=== PATIENT | male | born 1970 | race African-American/Black ===

== ENCOUNTER 2020-12-14 22:10 | Inpatient (IN) | payer MEDICAID ==
[~2020-12-14] VITALS: Ht 177.8 cm; Wt 116.6 kg
[2020-12-15] MEDS ORDERED: SODIUM CHLORIDE 0.9% 1,000 ML IV ONE (00:30)
[2020-12-15] MEDS ORDERED: CEFTRIAXONE 1 G PREMIX 50 ML IV ONE (00:30)
[2020-12-15] MEDS ORDERED: CLINDAMYCIN 600 MG in DEXTROSE 5% WATER 50 ML IV ONE (00:30)
[2020-12-15] MEDS ORDERED: CLINDAMYCIN 600MG PREMIX 50 ML IV NR (00:45)
[2020-12-15 01:41] LABS: BASOPHILS % 0.5 % (0.0-2.0); EOSINOPHILS % 1.3 % (0.0-5.0); HEMATOCRIT. 37.1 % (42.0-52.0); HEMOGLOBIN. 12.8 g/dL (14.0-18.0); LYMPHOCYTES % 25.8 % (20.0-50.0); MEAN CORPUSCULAR HEMOGLOBIN 27.4 pg (28.0-32.0); MEAN CORPUSCULAR VOLUME 79.1 fL (80.0-94.0); MEAN PLATELET VOLUME 8.7 fl (7.4-10.4); MONOCYTES % 7.8 % (2.0-8.0); NEUTROPHILS % 64.6 % (40.0-76.0); PLATELET 230 x1000/uL (130-400); RED BLOOD CELL COUNT 4.69 mill/uL (4.7-6.1); RED CELL DISTRIBUTION WIDTH 14.4 % (11.6-14.6)
[2020-12-15 01:46] LABS: CHLORIDE 100 mEq/L (98-107)
[2020-12-15 01:57] LABS: BETA HYDROXYBUTYRATE 0.4 mMol/L (0.0-0.3)
[2020-12-15] MEDS ORDERED: MAGNESIUM/ALUMINUM HYDROXIDE/SIMETHICONE 30ML UDC PO PRN (06:30)
[2020-12-15] MEDS ORDERED: ACETAMINOPHEN 325MG TABLET PO PRN (06:30)
[2020-12-15] MEDS ORDERED: ONDANSETRON HCL 4MG/2ML INJ IV PRN (06:30)
[2020-12-15] MEDS ORDERED: PIPERACILLIN/TAZOBACTAM 3.375 G in DEXTROSE 5% WATER 50 ML IV SCH (06:30)
[2020-12-15] MEDS ORDERED: HYDROCODONE/ACETAMINOPHEN 5/325MG TABLET PO PRN (06:30)
[2020-12-15] MEDS ORDERED: ENOXAPARIN 40MG/0.4ML SYR SUBCUT SCH (06:30)
[2020-12-15] MEDS ORDERED: LORAZEPAM 2MG/ML CPJ IV PRN (06:30)
[2020-12-15] MEDS ORDERED: DIPHENHYDRAMINE 50MG/ML VIAL IV PRN (06:30)
[2020-12-15] MEDS ORDERED: SODIUM CHLORIDE 0.45% 1,000 ML IV SCH (06:30)
[2020-12-15] MEDS ORDERED: NA PHOS,M-B/NA PHOS,DI-BA ENEMA 118ML PR PRN (06:30)
[2020-12-15] MEDS ORDERED: CLONIDINE 0.1MG TABLET PO PRN (06:30)
[2020-12-15] MEDS ORDERED: IPRATROPIUM/ALBUTEROL 0.5-3(2.5)MG/3ML NEB NEB PRN (06:30)
[2020-12-15] MEDS ORDERED: GUAIFENESIN 200MG/10ML SUGAR FREE UDC PO PRN (06:30)
[2020-12-15] MEDS ORDERED: DOCUSATE SODIUM 100MG CAPSULE PO PRN (06:30)
[2020-12-15] MEDS ORDERED: MORPHINE SULFATE 2 MG/ML CPJ (NOT FOR IM USE) IV PRN (06:30)
[2020-12-15] MEDS ORDERED: PIPERACILLIN/TAZ 3.375G PREMIX 50 ML IV NR (07:15)
[2020-12-15] MEDS ORDERED: NALOXONE HCL 0.4MG/ML VIAL IV PRN (07:30)
[2020-12-15] MEDS ORDERED: VANCOMYCIN 1 G PREMIX 200 ML IV SCH ×2 (07:30→16:00)
[2020-12-15] MEDS ORDERED: ENOXAPARIN 30MG/0.3ML SYR SUBCUT SCH (09:00)
[2020-12-15 10:35] VITALS: BP 158/96
[2020-12-15 11:34] VITALS: BP 158/96
[2020-12-15] MEDS ORDERED: METF-416 MT (11:59)
[2020-12-15] MEDS ORDERED: HYDR12.54 PO (11:59)
[2020-12-15] MEDS ORDERED: GLIP10TA10 MT (11:59)
[2020-12-15] MEDS ORDERED: AMLO-308 PO (11:59)
[2020-12-15] MEDS ORDERED: SITA25TA3 PO (11:59)
[2020-12-15 12:00] VITALS: BP 177/95
[2020-12-15] MEDS: AMLODIPINE 10MG TABLET PO SCH (13:06)
[2020-12-15] MEDS ORDERED: PIPERACILLIN/TAZOBACTAM 3.375G in DEXT 5% WATER 50ML IV SCH ×2 (14:00→22:00)
[2020-12-15] MEDS ORDERED: PIPERACILLIN/TAZOBACTAM 3.375G in DEXT 5% WATER 50ML IV NR (15:00)
[2020-12-15 16:00] VITALS: BP 151/101
[2020-12-15] MEDS: VANCOMYCIN 1 G PREMIX 200 ML IV SCH ×2 (17:04→22:47)
[2020-12-15 18:43] LABS: CHLORIDE 100 mEq/L (98-107)
[2020-12-15] MEDS ORDERED: DEXTROSE 50% WATER 50ML SYRINGE IV PRN (23:15)
[2020-12-16] VITALS: BP 166/90
[2020-12-16] MEDS: CLONIDINE 0.2MG TABLET PO PRN ×2 (01:08→12:03)
[2020-12-16 04:00] VITALS: BP 141/64
[2020-12-16] MEDS ORDERED: PIPERACILLIN/TAZOBACTAM 3.375G in DEXT 5% WATER 50ML IV SCH (06:00)
[2020-12-16 06:49] LABS: CHLORIDE 103 mEq/L (98-107)
[2020-12-16 06:56] LABS: BASOPHILS % 0.5 % (0.0-2.0); EOSINOPHILS % 1.4 % (0.0-5.0); HEMATOCRIT. 38.8 % (42.0-52.0); LYMPHOCYTES % 24.4 % (20.0-50.0); MEAN CORPUSCULAR VOLUME 80.5 fL (80.0-94.0); MONOCYTES % 8.8 % (2.0-8.0); NEUTROPHILS % 64.9 % (40.0-76.0); PLATELET 234 x1000/uL (130-400); RED BLOOD CELL COUNT 4.82 mill/uL (4.7-6.1); RED CELL DISTRIBUTION WIDTH 14.5 % (11.6-14.6)
[2020-12-16] MEDS: BLOOD SUGAR DIAGNOSTIC STRIP TEST SCH ×2 (06:56→12:03)
[2020-12-16 06:57] LABS: LDL CHOLESTEROL 111 mg/dL (5-100)
[2020-12-16 06:59] LABS: HDL CHOLESTEROL 26 mg/dL (40-59)
[2020-12-16 07:12] LABS: T4 FREE 1.71 ng/dL (0.76-1.46)
[2020-12-16] MEDS ORDERED: INSULIN LISPRO 100 UNITS/ML SUBCUT SCH (07:50)
[2020-12-16 08:00] VITALS: BP 148/70
[2020-12-16] MEDS: AMLODIPINE 10MG TABLET PO SCH (09:14)
[2020-12-16] MEDS: VANCOMYCIN 1 G PREMIX 200 ML IV SCH (09:15)
[2020-12-16 11:03] VITALS: BP 148/70
[2020-12-16 12:00] VITALS: BP 164/88
[2020-12-16 13:15] VITALS: BP 150/88
[2020-12-16] MEDS ORDERED: VANCOMYCIN 1250MG in DEXTROSE 5% WATER 250ML IV SCH (15:00)
== END 2020-12-16 13:05 | disposition home or self-care (01) | DRG 383 ==
LOC: ER 22:10 → 6EST 12-15 02:22 → ENRESERV 12-15 07:33
PROVIDERS: ADMIT Internal Medicine; ATTEND Internal Medicine
DX: L03.116 Cellulitis of left lower limb (principal); R65.10 Systemic inflammatory response syndrome (SIRS) of non-infectious origin without acute organ dysfunction; E11.9 Type 2 diabetes mellitus without complications; E86.0 Dehydration; I10 Essential (primary) hypertension; J45.909 Unspecified asthma, uncomplicated; Z79.84 Long term (current) use of oral hypoglycemic drugs; Z79.899 Other long term (current) drug therapy; Z82.49 Family history of ischemic heart disease and other diseases of the circulatory system; Z88.8 Allergy status to other drugs, medicaments and biological substances
CPT/HCPCS: 36415; 80048; 80053; 80061; 80202; 82010; 82962; 83036; 83605; 84145; 84439; 84443; 85025; 99285; J0696; J1650; J1815; J2543; J3370; J3490; J7030; J7060

== ENCOUNTER 2024-05-29 13:12 | Emergency (ER) | payer MEDICAID ==
[~2024-05-29] VITALS: Ht 175.3 cm; Wt 91.0 kg
[~2024-05-29 13:12] MED LIST: AMLO-308 PO; GLIP10TA17 MT; HYDR12.54 PO; METF-416 MT; SITA25TA3 PO
[2024-05-29 13:50] VITALS: O2SAT 98
[2024-05-29 15:23] LABS: EOSINOPHILS % 0.3 % (0.0-5.0); HEMATOCRIT. 45.5 % (42.0-52.0); HEMOGLOBIN. 15.4 g/dL (14.0-18.0); LYMPHOCYTES % 31.7 % (20.0-50.0); MEAN CORPUSCULAR HEMOGLOBIN 28.8 pg (28.0-32.0); MEAN CORPUSCULAR HGB CONC 33.9 g/dL (31.0-37.0); MEAN CORPUSCULAR VOLUME 84.9 fL (80.0-94.0); MEAN PLATELET VOLUME 8.9 fl (7.4-10.4); MONOCYTES % 4.6 % (2.0-8.0); NEUTROPHILS % 62.4 % (40.0-76.0); PLATELET 238 x1000/uL (130-400); RED BLOOD CELL COUNT 5.36 mill/uL (4.7-6.1); RED CELL DISTRIBUTION WIDTH 13.1 % (11.6-14.6); WHITE BLOOD COUNT 8.6 x1000/uL (4.5-11.0)
[2024-05-29 15:31] LABS: CHLORIDE 99 mEq/L (98-107); POTASSIUM 3.5 mEq/L (3.5-5.1); SODIUM 138 mEq/L (136-145)
[2024-05-29 15:32] LABS: CALCIUM 9.3 mg/dL (8.7-10.4); CARBON DIOXIDE 33 mEq/L (21-32)
[2024-05-29 15:37] LABS: CREATININE 1.1 mg/dL (0.6-1.3); GLUCOSE 372 mg/dL (70-105); UREA NITROGEN BLOOD 8 mg/dL (9-23)
[2024-05-29 15:41] LABS: BETA HYDROXYBUTYRATE 0.2 mMol/L (0.0-0.3)
[2024-05-29 16:03] LABS: CLARITY URINE CLEAR (CLEAR); COLOR URINE YELLOW (YELLOW); GLUCOSE URINE 3+ (NEGATIVE); KETONES URINE NEGATIVE (NEGATIVE); LEUKOCYTE ESTERASE URINE NEGATIVE (NEGATIVE); NITRITE URINE NEGATIVE (NEGATIVE); OCCULT BLOOD URINE NEGATIVE (NEGATIVE); PROTEIN URINE NEGATIVE (NEGATIVE); SPECIFIC GRAVITY URINE 1.031 (1.005-1.030); UROBILINOGEN URINE 0.2 E.U./dL (0.2-1.0)
[2024-05-29] MEDS ORDERED: INSULIN REGULAR (HUMULIN R) 1000UNITS/10ML VIAL SUBCUT ONE (16:15)
[2024-05-29] MEDS: ACETAMINOPHEN 500MG TABLET PO ONE (16:36)
[2024-05-29] MEDS: INSULIN REGULAR (HUMULIN R) 1000UNITS/10ML VIAL SUBCUT ONE (16:39)
[2024-05-29] MEDS ORDERED: AMOX1TAB15 MT (16:43)
[2024-05-29 16:46] LABS: BACTERIA URINE TRACE; RBC URINE NONE SEEN /hpf (0-2); SQUAMOUS EPITHELIAL CELL URINE RARE /lpf (RARE/1+); WBC URINE 0-2 /hpf (0-2)
[2024-05-29 17:15] VITALS: BP 144/84; PULSE 90; RESP 16; TEMP 36.9; O2SAT 98
== END 2024-05-29 17:15 | disposition home or self-care (01) ==
LOC: ER 13:12
DX: R10.13 Epigastric pain (principal); E11.9 Type 2 diabetes mellitus without complications; I10 Essential (primary) hypertension; Z79.84 Long term (current) use of oral hypoglycemic drugs; Z79.899 Other long term (current) drug therapy; Z88.6 Allergy status to analgesic agent
CPT/HCPCS: 99285; 74176; 80048; 81003; 82010; 82962; 83690; 85025; 36415; 96372; J1815

== ENCOUNTER 2024-09-16 10:46 | Emergency (ER) | payer OTHER ==
[~2024-09-16] VITALS: Ht 175.3 cm; Wt 85.0 kg
[~2024-09-16 10:46] MED LIST changes: +AMOX1TAB15 MT
[2024-09-16 11:14] VITALS: TEMP 36.7; O2SAT 98
[2024-09-16 11:24] LABS: BASOPHILS % 0.9 % (0.0-2.0); EOSINOPHILS % 0.4 % (0.0-5.0); HEMOGLOBIN. 14.8 g/dL (14.0-18.0); LYMPHOCYTES % 38.9 % (20.0-50.0); MEAN CORPUSCULAR HEMOGLOBIN 29.7 pg (28.0-32.0); MEAN CORPUSCULAR HGB CONC 35.1 g/dL (31.0-37.0); MEAN CORPUSCULAR VOLUME 84.4 fL (80.0-94.0); MEAN PLATELET VOLUME 8.4 fl (7.4-10.4); MONOCYTES % 4.7 % (2.0-8.0); NEUTROPHILS % 55.1 % (40.0-76.0); PLATELET 256 x1000/uL (130-400); RED BLOOD CELL COUNT 4.98 mill/uL (4.7-6.1); WHITE BLOOD COUNT 6.3 x1000/uL (4.5-11.0)
[2024-09-16 11:38] LABS: CHLORIDE 98 mEq/L (98-107); SODIUM 136 mEq/L (136-145)
[2024-09-16 11:39] LABS: CALCIUM 10.1 mg/dL (8.7-10.4); CARBON DIOXIDE 32 mEq/L (21-32)
[2024-09-16 11:44] LABS: GLUCOSE 322 mg/dL (70-105)
[2024-09-16 11:45] LABS: UREA NITROGEN BLOOD 15 mg/dL (9-23)
[2024-09-16 11:46] LABS: ALANINE AMINOTRANSFERASE 10 IU/L (10-49); ALBUMIN 4.4 g/dL (3.2-4.8); ASPARTATE AMINOTRANSFERASE 14 IU/L (<34); BILIRUBIN DIRECT 0.2 mg/dL (<=3.0)
[2024-09-16 11:47] LABS: BILIRUBIN TOTAL 0.6 mg/dL (0.1-1.0); PROTEIN TOTAL 7.5 g/dL (6.0-8.3)
[2024-09-16] MEDS: MAGNESIUM/ALUMINUM HYDROXIDE/SIMETHICONE 30ML UDC PO ONE (12:05)
[2024-09-16] MEDS: PANTOPRAZOLE 40MG DR TABLET PO ONE (12:06)
[2024-09-16 12:11] LABS: CLARITY URINE CLEAR (CLEAR); COLOR URINE YELLOW (YELLOW); GLUCOSE URINE 3+ (NEGATIVE); KETONES URINE TRACE (NEGATIVE); LEUKOCYTE ESTERASE URINE NEGATIVE (NEGATIVE); NITRITE URINE NEGATIVE (NEGATIVE); OCCULT BLOOD URINE NEGATIVE (NEGATIVE); PH URINE 6.5 (4.5-8.0); PROTEIN URINE 1+ (NEGATIVE); SPECIFIC GRAVITY URINE 1.037 (1.005-1.030)
[2024-09-16 12:27] LABS: RBC URINE 0-2 /hpf (0-2)
[2024-09-16 12:28] LABS: BACTERIA URINE NONE SEEN; SQUAMOUS EPITHELIAL CELL URINE FEW /lpf (RARE/1+)
[2024-09-16 12:30] LABS: WBC URINE 0-2 /hpf (0-2)
[2024-09-16] MEDS ORDERED: PROT40 MT (13:44)
[2024-09-16 13:54] VITALS: BP 156/80; PULSE 78; RESP 17; O2SAT 100
== END 2024-09-16 13:55 | disposition home or self-care (01) ==
LOC: ER 10:46
DX: R10.10 Upper abdominal pain, unspecified (principal); E11.65 Type 2 diabetes mellitus with hyperglycemia; I10 Essential (primary) hypertension; Z79.84 Long term (current) use of oral hypoglycemic drugs; Z79.899 Other long term (current) drug therapy; Z98.890 Other specified postprocedural states; Z88.6 Allergy status to analgesic agent
CPT/HCPCS: 36415; 74176; 80048; 80076; 81003; 85025; 93005; 99284

== ENCOUNTER 2024-12-08 21:30 | Emergency (ER) | payer OTHER ==
[~2024-12-08] VITALS: Ht 175.3 cm; Wt 84.3 kg
[~2024-12-08 21:30] MED LIST changes: +PROT40 MT
[2024-12-08 22:11] VITALS: O2SAT 99
[2024-12-09 01:22] VITALS: TEMP 36.8; O2SAT 99
[2024-12-09] MEDS ORDERED: HYDR-4001 MT (01:22)
[2024-12-09 01:25] VITALS: BP 151/70; PULSE 83; RESP 15
[2024-12-09] MEDS: HYDROCODONE/ACETAMINOPHEN 5/325MG TABLET PO ONE (01:25)
== END 2024-12-09 01:47 | disposition home or self-care (01) ==
LOC: ER 21:31
DX: D17.0 Benign lipomatous neoplasm of skin and subcutaneous tissue of head, face and neck (principal); E11.9 Type 2 diabetes mellitus without complications; I10 Essential (primary) hypertension; J45.909 Unspecified asthma, uncomplicated; Z79.84 Long term (current) use of oral hypoglycemic drugs; Z88.6 Allergy status to analgesic agent
CPT/HCPCS: 99283